=== PATIENT | female | born 1965 | race Caucasian/White ===

== ENCOUNTER 2020-06-17 13:41 | Emergency (ER) | payer OTHER ==
[~2020-06-17] VITALS: Ht 154.9 cm; Wt 72.6 kg
[2020-06-17] MEDS ORDERED: PHENTERMINE HCL15 MG PO (14:00)
[2020-06-17] MEDS ORDERED: LEVO-T25 MCG PO (14:01)
[2020-06-17] MEDS ORDERED: FISH OIL 1,0001 EAC9 PO (14:01)
[2020-06-17] MEDS ORDERED: SUPER THERAVIT1 EACH PO (14:01)
[2020-06-17] MEDS ORDERED: CALCIUM500 MG PO (14:01)
[2020-06-17] MEDS ORDERED: IBU800 MG PO (14:01)
[2020-06-17] MEDS ORDERED: FLEXERIL PO (14:15)
[2020-06-17 15:17] VITALS: BP 131/64
== END 2020-06-17 15:18 | disposition home or self-care (01) ==
LOC: M.ERS 13:41
DX: M41.86 Other forms of scoliosis, lumbar region (principal); E03.9 Hypothyroidism, unspecified; Z88.1 Allergy status to other antibiotic agents; Z79.899 Other long term (current) drug therapy; V49.88XA Car occupant (driver) (passenger) injured in other specified transport accidents, initial encounter; Y93.89 Activity, other specified; Y92.413 State road as the place of occurrence of the external cause; Y99.9 Unspecified external cause status